=== PATIENT | male | born 1980 | race Caucasian/White ===

== ENCOUNTER 2017-03-27 10:14 | Emergency (ER) | payer OTHER ==
[~2017-03-27] VITALS: Ht 172.7 cm; Wt 126.7 kg
[~2017-03-27 10:14] MED LIST: NAPR375T2 PO
[2017-03-27 10:25] VITALS: BP 150/79
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
--- NOTE | 2017-03-27 11:00 | NUR ---
DR SESAY AT BEDSIDE.
[2017-03-27] MEDS ORDERED: KETOROLAC 60 MG/2 ML VIAL IM ONE (11:10)
--- NOTE | 2017-03-27 11:20 | NUR ---
PT SITTING ON BED;NO ACUTE DISTRESS NOTED;WILL CONTINUE TO MONITOR PT.
[2017-03-27 11:41] VITALS: BP 137/76
== END 2017-03-27 11:30 | disposition home or self-care (01) ==
LOC: MED 10:14
DX: M54.40 Lumbago with sciatica, unspecified side (principal); R03.0 Elevated blood-pressure reading, without diagnosis of hypertension
CPT/HCPCS: 96372; 99283; J1885